=== PATIENT | male | born 1980 | race Two or more races ===

== ENCOUNTER 2018-03-18 10:35 | Emergency (ER) | payer MEDICAID, SELFPAY ==
[~2018-03-18] VITALS: Ht 180.3 cm; Wt 95.8 kg
[2018-03-18 10:37] VITALS: BP 126/79
[2018-03-18] MEDS ORDERED: SODIUM CHLORIDE 0.9% 1,000ML IVBOLUS ONE (11:00)
[2018-03-18] MEDS ORDERED: SODIUM CHLORIDE FLUSH 10ML SYR IVF ONE (11:00)
[2018-03-18] MEDS ORDERED: PROMETHAZINE 25 MG/ML, 1ML IM ONE (11:00)
[2018-03-18] MEDS ORDERED: FAMOTIDINE 20 MG/2 ML IVP ONE (11:00)
[2018-03-18] MEDS ORDERED: MAALOX/HYOSCYAMINE/LIDOCAINE 45 ML BTL PO ONE (11:00)
[2018-03-18 11:28] LABS: BASOPHILS # (AUTO) 0.04 x10^3/uL (0-0.1); BASOPHILS % (AUTO) 1 % (0-1); EOSINOPHILS # (AUTO) 0.28 x10^3/uL (0-0.4); EOSINOPHILS % (AUTO) 4 % (1-7); LYMPHOCYTES % (AUTO) 39 % (22-44); MD NO; MEAN CORPUSCULAR HGB CONC 33.7 g/dL (33.2-36.2); MEAN PLATELET VOLUME 7.3 fL (7.4-10.4); MONOCYTES # (AUTO) 0.75 x10^3/uL (0.2-0.8); MONOCYTES % (AUTO) 11 % (2-9); NEUTROPHILS % (AUTO) 45 % (42-75); PLATELET COUNT 272 x10^3/uL (130-400); RED BLOOD COUNT 5.31 x10^6/uL (4.38-5.82); RED CELL DISTRIBUTION WIDTH 13.1 % (9.4-14.8)
[2018-03-18 11:45] LABS: ALBUMIN 3.7 g/dL (3.4-5.0); ANION GAP 7 mmol/L (5-15); CALCIUM 8.8 mg/dL (8.5-10.1); CHLORIDE 105 mmol/L (98-107); CREATININE 1.19 mg/dL (0.7-1.3)
[2018-03-18] MEDS ORDERED: ONDANSETRON ODT 4 MG ONE (11:47)
[2018-03-18] MEDS ORDERED: MAALOX/HYOSCYAMINE/LIDOCAINE 45 ML BTL ONE (11:47)
[2018-03-18] MEDS ORDERED: FAMOTIDINE 20 MG/2 ML ONE (11:47)
[2018-03-18] MEDS ORDERED: ONDANSETRON ODT 4 MG PO ONE (12:00)
[2018-03-18] MEDS ORDERED: FAMOTIDINE 20 MG TABLET ONE (12:12)
== END 2018-03-18 12:58 | disposition home or self-care (01) ==
LOC: ED 12:40
DX: R10.84 Generalized abdominal pain (principal); R11.2 Nausea with vomiting, unspecified; R19.7 Diarrhea, unspecified
CPT/HCPCS: 36415; 74021; 80048; 82040; 85025; 96374; 99285; Q0162; 99284; S0028

== ENCOUNTER 2018-08-15 18:35 | Emergency (ER) | payer MEDICAID ==
[~2018-08-15] VITALS: Ht 177.8 cm; Wt 87.0 kg
[2018-08-15 18:43] VITALS: BP 128/80
[2018-08-15] MEDS ORDERED: AZITHROMYCIN 500 MG TABLET ONE (18:56)
[2018-08-15] MEDS ORDERED: CEFTRIAXONE 250 MG ONE (18:56)
[2018-08-15] MEDS ORDERED: AZITHROMYCIN 250 MG TABLET PO ONE (19:00)
[2018-08-15] MEDS ORDERED: CEFTRIAXONE 250 MG IM ONE (19:00)
[2018-08-15 19:25] LABS: MICROSCOPIC NOT IND
[2018-08-15 19:28] LABS: CULTURE INDICATED? NO
== END 2018-08-15 19:45 | disposition home or self-care (01) ==
LOC: ED 19:35
DX: A60.01 Herpesviral infection of penis (principal); N34.2 Other urethritis
CPT/HCPCS: 81003; 87491; 87591; 96372; 99284; J0696

== ENCOUNTER 2019-04-25 13:41 | Outpatient (CLI) | payer MEDICAID ==
[~2019-04-25 13:41] MED LIST: ACET325T26 PO; CEFD300C37 PO; DOXY100T PO
== END 2019-04-25 23:59 | disposition home or self-care (01) ==
LOC: WOUND 13:41
PROVIDERS: ATTEND Internal Medicine
DX: T81.89XA Other complications of procedures, not elsewhere classified, initial encounter (principal); F17.200 Nicotine dependence, unspecified, uncomplicated; Y83.8 Other surgical procedures as the cause of abnormal reaction of the patient, or of later complication, without mention of misadventure at the time of the procedure; Y92.89 Other specified places as the place of occurrence of the external cause
CPT/HCPCS: 97597; 99214

== ENCOUNTER 2019-05-12 03:29 | Emergency (ER) | payer MEDICAID ==
[~2019-05-12] VITALS: Ht 180.3 cm; Wt 77.7 kg
[2019-05-12 03:32] VITALS: BP 142/79
== END 2019-05-12 04:50 | disposition home or self-care (01) ==
LOC: ED 04:40
DX: L03.011 Cellulitis of right finger (principal)
CPT/HCPCS: 99283

== ENCOUNTER 2019-12-13 08:22 | Emergency (ER) | payer MEDICAID ==
[~2019-12-13] VITALS: Ht 180.3 cm; Wt 70.0 kg
[2019-12-13 08:27] VITALS: BP 120/68
--- NOTE | 2019-12-13 08:41 | NUR ---
FIRST CONTACT WITH PT. PT STATES "I HAD A FEVER FOR ABOUT 4 DAYS, WHICH IS GONE. I'VE BEEN CONGESTED. LIKE I HAVE SINUS PAIN." PT'S AOX4. RESPS EVEN AND UNLABORED. PA AT BEDSIDE TO EVALUATE AT THIS TIME.
--- NOTE | 2019-12-13 08:56 | NUR ---
report from christine
[2019-12-13 09:39] LABS: RAPID INFLUENZA A Negative (Negative); RAPID INFLUENZA B Negative (Negative)
--- NOTE | 2019-12-13 09:56 | NUR ---
Patient/Caregiver given discharge instructions and they have confirmed that they understand the instructions. Patient ambulatory with steady gait.
== END 2019-12-13 10:15 | disposition home or self-care (01) ==
LOC: ED 09:57
DX: B34.9 Viral infection, unspecified (principal); F15.129 Other stimulant abuse with intoxication, unspecified; F17.200 Nicotine dependence, unspecified, uncomplicated
CPT/HCPCS: 71046; 87081; 87400; 87880; 99284